=== PATIENT | male | born 1970 | race African-American/Black ===

== ENCOUNTER 2017-12-14 12:00 | Outpatient (RCR) | payer MEDICAID, SELFPAY ==
--- NOTE | 2017-09-01 18:08 | HP.PTEVAL_ITS ---
Patient's Visit Information WALLACE MERCHANT Jr. is a 47 year old M referred to Physical Therapy by Osmani SHARMA with a diagnosis of Low back pain with left leg sciatica. Date of Evaluation: 09/01/17 Physical Therapist: Arnel Durham - Visit Plan Frequency: 2x /Week Duration: 6 Weeks Plan: Continue with trial of extension based exercises to try and centralize symptoms in left leg, core strengthening, and try lumbar traction as well. Try aquatic physical therapy if patient does not respond to land therapy.Use manual therapy and other modalities as needed for pain control. - Subjective Subjective: Pt. states that he has been having back and left leg pain which has been going on for about four weeks with no specific injury that he is aware. Pt. PLOF includes history of back surgery about 6 years ago with lumbar disectomy. Pt. will get numbness and tingling currently down his left leg to his calf. Pt. has not had any recent imaging. Pt. reports laying down on the heating pad relieves some of his back/left leg pain. Pt. denies any change in his bowel or bladder function. Pt. has difficulty with standing/walking longer than 30 minutes, sitting longer than 40 minutes, sleeping, lifting things, driving longer than 3 hours, bending forward, housework, yard work, and work. 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 Pt. goal with physical therapy is to get rid of the leg pain and strengthen his core. Pt. has had previous physical therapy for his back before and after surgery with both land and aquatic physical therapy. Pt. rates back and left leg pain currently at 4/10, at worst 9/10, at best 3/10 and describes the pain as nerve pain. Pt. is currently taking Motrin and Flexoral for pain. Pt. PMH includes smoker 1-2 cigarettes a day for 40 years, back surgery with disectomy. Pt. lives with his family. 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 - Objective Posture- Good posture in standing. Palpation- Tenderness over whole lower back. Lumbar AROM flexion x 10- WNL, no change in symptoms down left leg to calf with increased pain in low back. Extension x 10- min restriction, no change in symptoms down left leg to calf. SB to left x 10- WNL, no change in symptoms down left leg to calf with mild pain. SB to right x 10- WNL, no change in symptoms down left leg to calf. Rotations- WNL bilaterally with mild pain. Pelvis and leg length- Normal in supine. Lumbar spine mobility- Hypomobility throughout whole lumbar spine with grade I mobs. Sensation- WNL bilaterally. Bilateral lower extremity strength- Grossly 5/5 for all motions. Tandem stance on left- 30 secs, right 30 secs. SLS on left- 30 secs, right 30 secs. Gait- Pt. ambulates with no noticeable gait deviations. - Goals Goal 1:: Pt. will be independent with home exercise program. Goal Time Frame: 2 Weeks Goal 2:: Pt. will centralize symptoms in left leg to low back. Goal Time Frame: 4-6 Weeks Goal 3:: Pt. will be able to sit for at least 3 hours with no back/left leg pain. Goal Time Frame: 4-6 Weeks Goal 4:: Pt. will be able to sleep a full night with no back/left leg pain. Goal Time Frame: 4-6 Weeks Goal 5:: Pt. will improve Oswestry Low Back Index less than 20% impairment in order to improve mobility and function. Goal Time Frame: 4-6 Weeks - Rehabilitation Potential Physical Therapy Diagnosis: Pt. is a 47 y.o. male who presents with low back and left leg pain down to his calf. Pt. has not had any recent imaging. Pt. impairments include pain, decreased ROM/flexibility, and strength. Pt. functional limitations include difficulty with sitting, standing, sleeping, driving, lifting things, housework, yard work, and work activity. Pt. presents with possible lumbar radiculopathy. Pt. was educated on diagnosis, prognosis, and home exercise program. Pt. will benefit from skilled physical therapy to address goals for therapy. Rehabilitation Potential: Good - Anticipated Interventions Thank you for the opportunity to evaluate your patient. For Medicare and Medicare HMO plans, please review the plan of care and approve it. It will need to be FAXED BACK to us at [phone] for Medicare purposes. Please let me know if there are questions or concerns regarding this plan of care. Physician Signature: Date:
--- NOTE | 2017-10-04 08:32 | HP.PTREVAL_ITS ---
DR.JKONTA Sotero It has been my pleasure to treat WALLACE MERCHANT Jr. over the last 9 visits for Low back pain with left leg sciatica. Please see the progress note below for an update on the physical therapy plan of care! Subjective: Pt reports that he can be in a bad position now. When he came in he had pain down the leg to the knee and now he has healthy pain just in his back. He thinks that he does not have enough muscle strength. He was in a bad position yesterday and he got it into his butticks. He thinks that the pool is the best for him. He was with the [facility] before with pool therapy and then moved over to land therapy. He still has a hard time with land exercises. He wants to continue more therapy to mainly focus on psoture and core strength. Pt can sit for about 40 min. Pt can sleep for about 4-5 hours....he thinks that now he has now a bad sleep pattern. Objective/Function: Posture: kept oberving pt with slouched posture or hands on knees. All goals were assessed but they were all assessed by verbal communication Plan Plan: Continue with AT PT to work on posture and core stability and maintain good posture. Goals Goal 1:: Pt. will be independent with home exercise program. Goal Time Frame: 2 Weeks Goal Progress: Goal Met Goal 2:: Pt. will centralize symptoms in left leg to low back. Goal Time Frame: 4-6 Weeks Goal Progress: Goal Met Goal 3:: Pt. will be able to sit for at least 3 hours with no back/left leg pain. Goal Time Frame: 4-6 Weeks Goal Progress: Progressing Goal 4:: Pt. will be able to sleep a full night with no back/left leg pain. Goal Time Frame: 4-6 Weeks Goal Progress: Progressing Goal 5:: Pt. will improve Oswestry Low Back Index less than 20% impairment in order to improve mobility and function. Goal Time Frame: 4-6 Weeks Goal 6:: Pt's LBP with decrease to 1/10 with ADL's. Goal Time Frame: 4-6 Weeks Anticipated Interventions Please do not hesitate to contact me at [phone] by phone or Fax: if you have questions or concerns regarding this new plan of care! Sincerely, Vera Zamora
--- NOTE | 2017-12-14 13:51 | HP.PTDCSUM_ITS ---
HP - PT D/C Summary It has been my pleasure to treat WALLACE MERCHANT Jr. under orders from DR.JKONTA Sotero for the diagnosis of Low back pain with left leg sciatica for a total of 30 visit(s). Discharge Date: Please see the following information for a summary of their discharge status. - Subjective Subjective: Pt reports that his pain is creeping down the R leg. He has a primary care appt on December 26. He does not feel he is making the same improvements as last time he was in the pool. His current symptoms at this time : mostly back pain that is today on the center to the R. Most o fthe time the L leg will go numb and now the R leg is numb. Pt reports that he can not walk too much. If he irritates his back too much then he is in trouble. The water therapy is still the best for him. - Pain LB Pain Intensity (Out of 10): 5 left LE Pain Intensity (Out of 10): 0 RLE Pain Intensity (Out of 10): 3 - Overall Improvement % Improvement: 80 - Objective Objective/Function: Pt. will be independent with home exercise program...goal met. Be able to complete arms over head exercises without leg symptoms...goal not met. Pt. will be able to sit for at least 3 hours with no back/left leg pain...not met. Pt. will be able to sleep a full night with no back/left leg pain...goal not met. - Goals Goal 1:: Pt. will be independent with home exercise program. Goal Progress: Goal Met Goal 2:: Be able to complete arms over head exercises without leg symptoms Goal Progress: Progressing Goal 3:: Pt. will be able to sit for at least 3 hours with no back/left leg pain. Goal Progress: Progressing Goal 4:: Pt. will be able to sleep a full night with no back/left leg pain. Goal Progress: Progressing Goal 5:: Pt. will improve Oswestry Low Back Index less than 20% impairment in order to improve mobility and function. Goal Progress: Progressing Goal 6:: Pt's LBP with decrease to 1/10 with ADL's. Goal Progress: Progressing - Plan Plan: DC PT to [facility] post rehab program. Pt to follow up with his Dr on December 26, 2017 - D/C Information If there are questions or concerns regarding this patient's physical therapy, please feel free to call me at [phone]. Thank you for the referral of this patient. Sincerely, Vera Zamora
== END 2017-12-14 19:00 | disposition home or self-care (01) ==
LOC: PT 12:00
PROVIDERS: Family Provider Preventive Medicine Occupational Medicine; PCP Preventive Medicine Occupational Medicine; Visit Provider Family Medicine
DX: M54.42 Lumbago with sciatica, left side (principal); G89.29 Other chronic pain
CPT/HCPCS: 97110; 97113; 97162; 97530

== ENCOUNTER 2018-08-05 21:42 | Emergency (ER) | payer MEDICAID, SELFPAY ==
[2018-08-05 21:43] VITALS: BP 150/87; PULSE 85; RESP 17; TEMP 37.1; O2SAT 100; BMI 23.6
[2018-08-05] MEDS: Lidocaine/Epi/Tetracaine 50 ML 1 APPLIC TOPICAL (22:44)
[2018-08-05] MEDS: Ibuprofen 600 MG Tablet PO (22:47)
--- NOTE | 2018-08-05 23:15 | ED.VISSUMM ---
- ER Visit Summary Date of Service: 08/05/18 Chief Complaint: Right thumb laceration History of Present Illness: The patient is a 48 M [id number], mandolin injury at 2 PM today. Tetanus in the last 5 years. No anticoagulation medicines. This occurred 8 hours ago. Patient states would rebleed have tenderness. History of back surgeries. No gastric ulcers or kidney injury. Physical Examination: General: Alert and oriented ?3, no acute distress HEENT: Normocephalic, atraumatic. Moist mucosa membranes Neck: supple, nontender. Cardiovascular: Regular rate and rhythm, no murmurs Respiratory: Normal breath sounds, symmetric, no distress Abdomen: Soft, nontender, nondistended Extremities: Right upper extremity: Hand noted slice injury of 2 cm x 1.5 cm radial aspect distal phalanx. No nailbed involvement. There is no active bleeding. No bone exposure. Neuro: no focal neurological deficits. Test Results: [] Emergency Department Course and Treatment: Let was placed for short period, Surgifoam and cage splint placed by nursing. Wound care discussed. He will leave the dressing on for day. Patient will follow-up as an outpatient. Motrin was given in the ED. Treatment Plan: [] Disposition: Discharge Impression: 1. Avulsion injury right thumb. This note was generated with [employer] ([employer]) dictation software. It may contain incorrect words, spelling, and punctuation that were not noted in review of the chart prior to signing ED Disposition - Plan for ED Patient: Disposition: Home or Assisted Living Chief Complaint: Laceration Diagnosis: Avulsion of skin of finger Instructions: ED Laceration All Prescriptions: Ibuprofen 600 mg PO 4X/DAY PRN #20 tablet PRN Reason: Pain Referrals: Oswaldo Portillo DO [Primary Care Provider] - 5-7 Days
--- NOTE | 2018-08-05 23:19 | ED.DCSUM_ITS ---
- ER Visit Summary Date of Service: 08/05/18 Chief Complaint: Right thumb laceration History of Present Illness: The patient is a 48 M jhyon-[id number]-[id number], mandolin injury at 2 PM today. Tetanus in the last 5 years. No anticoagulation medicines. This occurred 8 hours ago. Patient states would rebleed have tenderness. History of back surgeries. No gastric ulcers or kidney injury. Physical Examination: General: Alert and oriented ?3, no acute distress HEENT: Normocephalic, atraumatic. Moist mucosa membranes Neck: supple, nontender. Cardiovascular: Regular rate and rhythm, no murmurs Respiratory: Normal breath sounds, symmetric, no distress Abdomen: Soft, nontender, nondistended Extremities: Right upper extremity: Hand noted slice injury of 2 cm x 1.5 cm radial aspect distal phalanx. No nailbed involvement. There is no active bleeding. No bone exposure. Neuro: no focal neurological deficits. Test Results: [] Emergency Department Course and Treatment: Let was placed for short period, Surgifoam and cage splint placed by nursing. Wound care discussed. He will leave the dressing on for day. Patient will follow-up as an outpatient. Motrin was given in the ED. Treatment Plan: [] Disposition: Discharge Impression: 1. Avulsion injury right thumb. This note was generated with [employer] dictation software. It may contain incorrect words, spelling, and punctuation that were not noted in review of the chart prior to signing ED Disposition - Plan for ED Patient: Disposition: Home or Assisted Living Chief Complaint: Laceration Diagnosis: Avulsion of skin of finger Instructions: ED Laceration All Prescriptions: Ibuprofen 600 mg PO 4X/DAY PRN #20 tablet PRN Reason: Pain Referrals: Oswaldo Portillo DO [Primary Care Provider] - 5-7 Days
[2018-08-06] MEDS: Silver Nitrate (BKC) 1 EACH TOPICAL (00:07)
== END 2018-08-06 00:11 | disposition home or self-care (01) ==
PROVIDERS: Emergency Provider Emergency Medicine; Family Provider Preventive Medicine Occupational Medicine; PCP Preventive Medicine Occupational Medicine
DX: S61.011A Laceration without foreign body of right thumb without damage to nail, initial encounter (principal); W26.8XXA Contact with other sharp object(s), not elsewhere classified, initial encounter; Y93.9 Activity, unspecified; Y92.9 Unspecified place or not applicable; Z72.0 Tobacco use
CPT/HCPCS: 99283